=== PATIENT | female | born 1990 | race Caucasian/White ===

== ENCOUNTER 2016-12-13 22:42 | Emergency (ER) | payer MEDICAID ==
[~2016-12-13] VITALS: Ht 167.6 cm; Wt 99.8 kg
[2016-12-13 23:14] LABS: URINE BILIRUBIN - DIPSTICK NEGATIVE (NEG); URINE BLOOD NEGATIVE (NEG)
[2016-12-13 23:19] LABS: URINE SQUAMOUS CELLS TNTC #/hpf (0-5)
[2016-12-13 23:25] LABS: HEMOGLOBIN 13.1 g/dL (12.2-16.2); LYMPH # 2.3 K/mm3 (0.7-4.5); LYMPH % 21.6 % (10-50.0)
--- NOTE | 2016-12-14 00:08 | Emergency Room Report ---
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 N/V. H/O GALLBLADDER. 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 N Clinical Suspician of Infection? N Mental Status: 1 - Regular (Normal Baseline) Sepsis Risk:Low Sepsis Risk Have you (or family members/close friends) recently traveled outside the [place]? N If Yes, where/when: Have you had exposure to infectious disease within the past month? N TB? Other? Specify: Source patient, RN notes reviewed, RN/MD Exam Limitations no limitations Comment This is a 26-year-old female patient brought in by EMS with RIGHT upper quadrant abdominal pain, after eating a pizza around 9 PM. Patient was nauseated, vomited once. Denies any previous similar episodes in the past. ALLERGIES Coded Allergies: penicillin G (Mild, I-RASH 12/13/16) Pertussis Vaccines (12/13/16) History Medical History General CAD? No Angina: No UT: No Hypertension? No Hyperlipidemia? No CHF? No DVT? No PE? No COPD? No Asthma? No Anemia? No GERD? Yes Gastric ulcers? Yes GI Bleed? No Hernia? Yes Thyroid Problems? No Hypothyroidism? No CVA? Yes Seizures? No Diabetes? No Renal Insuffiency? No End Stage Renal Disease? No UTI? No Stones? No BPH? No GB Disease: Yes Nephritic Syndrome? No Asplenia? No Hepatitis? No Sickle Cell Disease? No Arthritis? No Migraines? Yes Cataracts? No Glaucoma? No MRSA? No HIV? No TB? No Anxiety? Yes Depression? Yes Cancer? 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 No: respiratory distress. Lung Sounds bilateral: normal breath sounds, lungs clear. Cardiovascular normal exam, regular rate/rhythm, no peripheral edema, no gallop, no JVD, no murmur, no rub, normal peripheral pulses Gastrointestinal normal bowel sounds, soft, no organomegaly, tenderness (RUQ) Extremities non-tender, normal range of motion, normal inspection Neurologic alert, normal exam, oriented x 3 Mental status normal mood/affect Skin intact, normal color, warm/dry Medical Decision Making LABS/Meds/Orders Pt receiving controlled substance in ED? No Comment 23:45-patient reevaluated, she appears in no acute distress, medically stable. Advised patient to follow up with PCP in order to obtain a fasting gallbladder ultrasound in the next few days. Patient instructed to abstain from any fatty meals till workup completed. Ddx: Cholelithiasis, cholecystitis, acute pancreatitis, gastritis, gastroesophageal reflux disease, hiatal hernia, bowel obstruction, etc. Results/Orders Laboratory Tests 12/13/16 2315: Sodium 142, Potassium 4.0, Chloride 103, Carbon Dioxide 30, BUN 13, Creatinine 1.0, Estimated Creat Clear 133, Estimated GFR (MDRD) 67, Glucose 101, Calcium 9.2, Total Bilirubin 0.3, AST 34, ALT 32, Alkaline Phosphatase 127 H, Total Protein 9.0 H, Albumin 4.3, Globulin 4.7 H, Albumin/Globulin Ratio 0.9 L, Amylase 62, Lipase 154, WBC 10.8, RBC 4.56, Hgb 13.1, Hct 40.2, MCV 88.1, RDW 13.0, Plt Count 285, MPV 8.6, Gran % 71.9, Gran # 7.8, Lymphocytes % 21.6, Monocytes % 4.2, Eosinophils % 2.0, Basophils % 0.3, Lymphocytes # 2.3, Monocytes # 0.5, Eosinophils # 0.2, Basophils # 0.0, PUBS MCHC 32.5, MCH 28.7 12/13/160: Urine Color YELLOW, Urine Appearance SL CLOUDY, Urine pH 6.0, Ur Specific [place] >= 1.030, Urine Protein NEGATIVE, Urine Ketones NEGATIVE, Urine Blood NEGATIVE, Urine Nitrate NEGATIVE, Urine Bilirubin NEGATIVE, Urine Urobilinogen 1.0, Ur Leukocyte Esterase NEGATIVE, Urine WBC 5-10, Ur Squamous Epith Cells TNTC, Amorphous Sediment 1+, Urine Mucus 1+, Urine Glucose NEGATIVE Current Medication Orders Sig/[place] Start time Last Medication Dose Route Stop Time Status Admin Morphine Sulfate 4 MG ONCE ONE 12/14 14 DC 12/14 IV 12/14 0016 0012 Ondansetron HCl 4 MG ONCE ONE 12/14 0015 DC 12/14 IV 12/14 0016 0011 Ondansetron HCl 0 .STK-MED ONE 12/14 001 DC .ROUTE Morphine Sulfate 0 .STK-MED ONE 12/14 0010 DC .ROUTE Ketorolac 30 MG ONCE ONE 12/13 233 DC 12/13 Tromethamine IV 12/13 2331 2325 Ondansetron HCl 4 MG ONCE ONE 12/13 2330 DC 12/13 IV 12/13 2331 2323 Ketorolac 0 .STK-MED ONE 12/13 2322 DC Tromethamine .ROUTE Ondansetron HCl 0 .STK-MED ONE 12/13 2322 DC .ROUTE Sodium Chloride 1,000 ML .STK-MED ONE 12/13 2303 DC IV Sodium Chloride 1,000 ML .Q1H1M 12/13 2300 DC 12/13 IV 12/14 0000 2323 Sodium Chloride 10 ML PRN PRN 12/13 2300 AC IV 12/14 224 Sodium Chloride 10 ML PRN PRN 12/13 2245 AC IV 12/14 2244 Orders Procedure Date/time Status CULTURE, URINE 12/13 2309 Active URINALYSIS/COMPLETE 12/13 2244 Complete IV SALINE LOCK 12/14 2243 Active URINE 12/14 2243 Complete LIPASE 12/14 2243 Complete CBC WITH AUTO DIFF 12/14 2243 Complete CHEM 12 PROFILE 12/14 2243 Complete AMYLASE 12/14 2243 Complete Departure Departure Time of Disposition 0003 Disposition DC Home or Self Care(routine) Clinical Impression Primary Impression: RUQ abdominal pain Condition STABLE Referrals Sasha GUDINO,Yosi Zapata Patient Instructions DI for Abdominal Pain-Adult Additional Instructions Please see your PCP within 2-3 days in order to arrange for a glallbladder ultrasound (fasting). Discharge Counseling Counseled pt/family regarding diagnosis, test results, medications/RX, home care, follow up needs Comment Please see your PCP within 2-3 days in order to arrange for a glallbladder ultrasound (fasting). ED Critical Care Critical Care No at [id number]
[2016-12-14 00:25] VITALS: BP 102/68
== END 2016-12-14 00:25 | disposition home or self-care (01) ==
LOC: ER 22:42
PROVIDERS: Emergency Medicine
DX: R10.11 Right upper quadrant pain (principal)
CPT/HCPCS: J2405

== ENCOUNTER 2016-12-19 06:34 | Emergency (ER) | payer MEDICAID ==
[~2016-12-19] VITALS: Ht 167.6 cm; Wt 99.8 kg
[2016-12-19] MEDS ORDERED: PRILOSEC20 M1 PO (06:44)
[2016-12-19] MEDS ORDERED: KLONOPIN 0.5MG0.5 MG NG (06:45)
[2016-12-19 07:12] LABS: URINE BILIRUBIN - DIPSTICK NEGATIVE (NEG); URINE BLOOD NEGATIVE (NEG)
[2016-12-19 07:17] LABS: HEMOGLOBIN 14.1 g/dL (12.2-16.2); LYMPH # 1.8 K/mm3 (0.7-4.5); LYMPH % 17.3 % (10-50.0)
--- NOTE | 2016-12-19 08:04 | Emergency Room Report ---
History of Present Illness Time Seen by [id number] Presenting Problem in Triage Pt arrived:Walked Presenting Problem:AWAKENED AT 0300 WITH SOB AND SHARP PAIN RUQ AND BACK. WAS SEEN HERE IN ER ON Wednesday12/14/16. 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 N Clinical Suspician of Infection? N Mental Status: 1 - Regular (Normal Baseline) Sepsis Risk:Possible Sepsis Risk Have you (or family members/close friends) recently traveled outside the [place]? N If Yes, where/when: Have you had exposure to infectious disease within the past month? N TB? Other? Specify: Patient seen in ED 12/13/16, referred to PCP of choice for f/u gb US. She states she has just moved here from [place] and is working on [employer] insurance so she may ultimately go to Dr. Hernandez. Meanwhile, she continues to have intense nausea and sharp RUQ pain in conjunction with eating fatty food such as pizza. The pain has been intermittent until yesterday, when it became more intense and unremitting. She has no appetite due to the nausea and pain. She is not vomiting or stooling blood. No fever. LMP two months ago. A little urinary frequency reported, w/o hematuria. ALLERGIES Coded Allergies: penicillin G (Mild, I-RASH 12/13/16) Pertussis Vaccines (12/13/16) Home Medications Reported Medications OMEPRAZOLE MAGNESIUM (Prilosec 20MG) 20 MG PO BID Clonazepam (Klonopin 0.5MG) 0.5 MG NG PRN PRN ANXIETY History Medical History General CAD? No Angina: No [place]: No Hypertension? No Hyperlipidemia? No CHF? No DVT? No PE? No COPD? No Asthma? No Anemia? No GERD? Yes Gastric ulcers? Yes GI Bleed? No Hernia? Yes Thyroid Problems? No Hypothyroidism? No CVA? Yes Seizures? No Diabetes? No Renal Insuffiency? No End Stage Renal Disease? No UTI? No Stones? No BPH? No GB Disease: Yes Nephritic Syndrome? No Asplenia? No Hepatitis? No Sickle Cell Disease? No Arthritis? No Migraines? Yes Cataracts? No Glaucoma? No MRSA? No HIV? No TB? No Anxiety? Yes Depression? Yes Cancer? 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 Physical Exam Vital Signs Vital Signs Date Time Temp Pulse Resp B/P Pulse O2 O2 Flow FiO2 Ox Delivery Rate 12/19 0942 93 14 109/72 100 12/19 0824 16 12/19 0806 97 20 132/91 100 12/19 0637 98.1 113 24 142/83 98 General Appearance normal appearance (tearful), WD/WN, mild distress Eye Exam - bilateral eye normal exam, bilateral eye PERRL, bilateral eye EOMI ( nonicteric) Neck normal inspection, non-tender, supple Respiratory Status Yes: trachea midline, chest symmetrical, non tender chest. No: respiratory distress, tender on palpation, use of accessory muscles, pain on inspiration, pain on expiration, productive cough, non productive cough. Lung Sounds bilateral: normal breath sounds, lungs clear. Cardiovascular normal exam, regular rate/rhythm, no peripheral edema, no gallop, no JVD, no murmur, no rub, normal peripheral pulses Gastrointestinal normal bowel sounds, soft, no organomegaly, no pulsatile mass, no guarding, tenderness (pos Alvarado's sign) Back no CVA tenderness, bowel/bladder continent, gait normal Extremities normal range of motion Strength 5 Upper Ext (L), 5 Upper Ext (R), 5 Lower Ext (L), 5 Lower Ext (R) Neurologic alert, normal exam, no motor/sensory deficits, oriented x 3 Glascow Coma Scale Glascow Coma Scale Response Value EYE response: 4 Spontaneously 4 MOTOR response: 6 OBEYS 6 VERBAL response: 5 Oriented & Converses 5 Total 15 Skin intact, normal color, warm/dry Medical Decision Making LABS/Meds/Orders Pt receiving controlled substance in ED? No Results/Orders Laboratory Tests 12/19/16 0755: Lipase 142 12/19/16 0755: Sodium 140, Potassium 4.5, Chloride 105, Carbon Dioxide 23, BUN 18, Creatinine 1.0, Estimated Creat Clear 133, Estimated GFR (MDRD) 67, Glucose 106, Calcium 8.9, Total Bilirubin 0.5, AST 227 H, ALT 145 H, Alkaline Phosphatase 127 H, Total Protein 7.5, Albumin 3.7, Globulin 3.8 H, Albumin/Globulin Ratio 1.0 L 12/19/16 0705: WBC 10.6, RBC 4.86, Hgb 14.1, Hct 42.2, MCV 86.9, RDW 12.8, Plt Count 294, MPV 8.4, Gran % 75.9, Gran # 8.0 H, Lymphocytes % 17.3, Monocytes % 5.0, Eosinophils % 1.3, Basophils % 0.4, Lymphocytes # 1.8, Monocytes # 0.5, Eosinophils # 0.1, Basophils # 0.0, PUBS MCHC 33.5, MCH 29.1, Urine Color YELLOW , Urine Appearance SL CLOUDY, Urine pH 6.5, Ur Specific [place] 1.020, Urine Protein NEGATIVE, Urine Ketones NEGATIVE, Urine Blood NEGATIVE, Urine Nitrate NEGATIVE, Urine Bilirubin NEGATIVE, Urine Urobilinogen 1.0, Ur Leukocyte Esterase 1+ H, Urine WBC 5-10, Ur Squamous Epith Cells 5-10, Urine Bacteria 2+, Urine Mucus 2+, Urine Glucose NEGATIVE Current Medication Orders Sig/Florence Start time Last Medication Dose Route Stop Time Status Admin Ketorolac 30 MG ONCE ONE 12/19 829 DC 12/19 Tromethamine IV 12/19 830 0824 Ondansetron HCl 4 MG ONCE ONE 12/19 829 DC 12/19 IV 12/20 0731 0824 Ketorolac 0 .STK-MED ONE 12/19 820 DC Tromethamine .ROUTE Ondansetron HCl 0 .STK-MED ONE 12/19 820 DC .ROUTE Sodium Chloride 1,000 ML .STK-MED ONE 12/19 702 DC IV Ondansetron HCl 0 .STK-MED ONE 12/19 07 DC .ROUTE Ondansetron HCl 4 MG ONCE ONE 12/19 07 DC 12/19 IV 12/19 0701 0704 Sodium Chloride 10 ML PRN PRN 12/19 07 AC IV 12/20 0646 Sodium Chloride 1,000 ML .Q1H1M 12/19 0700 DC 12/19 IV 12/19 08 0704 Sodium Chloride 10 ML PRN PRN 12/19 07 AC IV 12/20 0659 Orders Procedure Date/time Status DIET-NOTHING BY MOUTH 12/19 B Active US RUQ-(ABD LTD)1ORGAN/QUAD/FU 12/19 0818 Active LIPASE 12/19 08 Complete CULTURE, URINE 12/[address] ABD/PELVIS REQ 12/19 07 Complete IV SALINE LOCK 12/19 06 Active URINALYSIS/COMPLETE 12/19 06 Complete URINE 12/19 645 Complete CBC WITH AUTO DIFF 12/19 645 Complete CHEM 12 PROFILE 12/19 06 Complete XRAY/CT/US XRAY/CT/US CT abdomen, pelvis CT interpretation by reviewed by me, discussed w/radiologist Time results known: 814 CT Results normal/NAD (distended gb rec US ) Ultrasound gallbladder US Interpretation by reviewed by me (d/w tech) US results gall bladder stones (nl CBD no stranding mult calc) Progress ED Progress Notes Date 12/19/16 Time 0950 Comment Feeling much better, ready for d/c; referred to surgery out patient Departure Departure Time of Disposition 0950 Disposition DC Home or Self Care(routine) Clinical Impression Primary Impression: Gallstones Condition STABLE Referrals Amna GUDINO,Dheeraj RUBY MD,KRYSTAL Prince Patient Instructions Gallstones (Alternative Therapy) Additional Instructions Naproxen, low fat diet, call for surgery appointment regarding gallstones and need for surgical removal of gall bladder. Discharge Counseling Counseled pt/family regarding diagnosis, test results, medications/RX, home care, follow up needs Prescriptions Current Visit Scripts NAPROXEN (NAPROXEN 500MG TAB) 500 MG PO BIDP PRN pain #20 TAB ED Critical Care Critical Care No at [id number]
--- NOTE | 2016-12-19 08:16 | RADIOLOGY REPORT PS360 ---
CT ABD PELVIS W/O CONTRAST COMPARISON: None HISTORY: Right upper quadrant pain, nausea and vomiting TECHNIQUE: Multiple axial scans obtained from the hemidiaphragms the pelvic floor and were performed without IV or oral contrast. Sagittal and coronal reformats were evaluated as well. FINDINGS: The lower lung curiel are clear. The liver spleen and pancreas appear normal. The stomach is distended with ingested food particles but otherwise appears normal. The gallbladder somewhat hydropic without significant contraction and in view of the. Certainly some degree of biliary dyskinesia must be considered. There may be a small amount biliary sludge within the gallbladder and suggest consideration of a follow-up ultrasound right upper quadrant for additional evaluation. The adrenal glands are normal. The kidneys are normal size and there are no calculi and is no obstructive uropathy. Small bowel is normal. The appendix is normal caliber and partially air-filled. There is minimal scattered stool in ascending and transverse colon. The small umbilical hernia containing fat only. The uterus is normal size and in the midline. Urinary bladder is partially decompressed, is no free fluid in the pelvis. IMPRESSION: Somewhat hydropic gallbladder with stomach distended with food and suspect biliary dyskinesia and suggest clinical correlation and possibly follow-up ultrasound right upper quadrant and probably HIDA scan as well.
[2016-12-19] MEDS ORDERED: NAPROXEN SODIU500 MG PO (09:51)
[2016-12-19 09:57] VITALS: BP 109/72
--- NOTE | 2016-12-19 09:57 | RADIOLOGY REPORT PS360 ---
US RUQ-(ABD LTD)1ORGAN/QUAD/FU COMPARISON: CT scan abdomen pelvis same date HISTORY: Right upper quadrant pain TECHNIQUE: Ultrasound right upper quadrant FINDINGS: The pancreas appears normal. The liver is normal size and liver parenchyma appears normal. The gallbladder somewhat hydropic and there are multiple calcified and partially calcified gallstones layering with on the dependent wall. There is a small amount biliary sludge as well. The common bile is normal caliber. Right kidney measures 10.6 x 4.1 x 5.3 cm and shows a good cortical medullary junction with no abnormality. IMPRESSION: Obvious cholelithiasis and suspected tiny amount biliary sludge as well
[2017-01-05] MEDS ORDERED: KEFLEX 500MG.500 MG PO (20:30)
== END 2016-12-19 09:58 | disposition home or self-care (01) ==
LOC: ER 06:34
PROVIDERS: Emergency Medicine
DX: K80.80 Other cholelithiasis without obstruction (principal); Z87.891 Personal history of nicotine dependence
CPT/HCPCS: J2405

== ENCOUNTER → 2016-12-30 | Day surgery (SDC) | payer MEDICAID ==
[~2016-12-30] VITALS: Ht 167.6 cm; Wt 99.8 kg
[~2016-12-30] MED LIST: KLONOPIN 0.5MG0.5 MG NG; NAPROXEN SODIU500 MG PO; PRILOSEC20 M1 PO
--- NOTE | 2016-12-30 11:44 | Operative Note ---
Surgeon/Diagnoses Surgeon/Team Automobile Assembler(s) Date of procedure: 12/30/16 Surgeon: Dheeraj Woo Team Automobile Assembler(s): Nydia Phoenix Diagnoses Pre-op diagnosis: Symptomatic gallstones, chronic cholecystitis Post-op diagnosis Same Procedure Procedure Procedure: Laparoscopic cholecystectomy Indications: CELSO CRAMER is a 26 year-old Female with a history of pain. She is a 26-year- old white female referred from the emergency department for gallbladder disease. For about 4 or 5 months she has had symptoms consistent with biliary colic. However, the past couple weeks her symptoms have been more severe. She describes pain in the epigastrium and RIGHT upper quadrant with radiation into the chest and back with associated nausea. This is intermittent but often occurs postprandially. On 12/14/16 after she had eaten pizza she had a significant attack and called EMS and was transported to the emergency department where she was evaluated by Dr. Rubens Perez. Blood work was unremarkable. At that point no imaging was done and plan was made for her to follow-up as an outpatient for possible gallbladder imaging. However the patient presented back to the emergency department on 12/19/16 and at that point had some slightly increased transaminases. She underwent CT scan as well as gallbladder ultrasound. This revealed obvious gallstones with normal common bile duct and possibly hydropic gallbladder. Findings: Distended gallbladder with small stones and thickening of the gallbladder with some adhesions Procedure Description: Consent was obtained and patient was taken to the operating room. She was given preoperative intravenous antibiotics. She was positioned in a supine position and general anesthesia was induced. Abdomen was prepped and draped in the standard surgical fashion. Subumbilical skin incision was made and while performing abdominal wall lifted the Veress needle was inserted. CO2 pneumoperitoneum was achieved to 15 mmHg. 10/11 mm optical trocar was inserted at the umbilicus. Intracranial contents were visualized. She was positioned in reverse Trendelenburg with LEFT side down. A couple of 5 mm trochars were inserted in the RIGHT upper abdomen. 10 mm trocar was entered in the epigastrium. Gallbladder was easily identified and was somewhat distended. It was grasped retracted anteriorly and superiorly over the dome of the liver. There were some omental adhesions to the gallbladder which were taken down using blunt dissection. Infundibulum/Heather's pouch of the gallbladder was retracted anterolaterally. Dissection was carried out dissecting free and identifying the cystic duct and cystic artery in the critical view of safety. Gallbladder somewhat tapered to the cystic duct and it appeared as though there were a couple of stones within the cystic duct which were easily manipulated into the gallbladder body. Cystic duct was then multiply clipped and then divided. Cystic artery was carefully coagulated with Buck ultrasonic harmonic lurdes and divided. Gallbladder was dissected free from the liver in a retrograde fashion using Buck ultrasonic harmonic lurdes. Gallbladder was placed within an Endo Catch retrieval device and removed from the peritoneal cavity via the umbilical trocar site. Gallbladder fossa was inspected for hemostasis which was assured. Limited interrogation was performed. There is good hemostasis. Trochars are removed as CO2 pneumoperitoneum was evacuated. Fascia at the umbilicus was closed with 0 Vicryl suture. Local anesthetic was infiltrated. Skin incisions were closed with 4-0 Monocryl in a subcuticular fashion. Steri-Strips and clean dry sterile dressings were applied. EBL (ml): 30 Anesthesia: GETA Specimens: Gallbladder and contents Disposition Disposition: To PACU at 1145
--- NOTE | 2016-12-30 11:50 | Anesthesia Record ---
Anesthesia Record Part I Total IV fluids: 700 EBL (ml): 25 Urine Output: 30 B/P: 100/70 % SaO2: 96 Pulse: 80 Resps: 16 Temp: 97.3 Patient is: Drowsy, Stable Stable to PACU at: 1147 at 1150
--- NOTE | 2016-12-30 11:50 | Anesthesia Record ---
Anesthesia Record Part I Total IV fluids: 700 EBL (ml): 25 Urine Output: 30 B/P: 100/70 % SaO2: 96 Pulse: 80 Resps: 16 Temp: 97.3 Patient is: Drowsy, Stable Stable to PACU at: 1147 at 1150
--- NOTE | 2016-12-30 11:51 | Anesthesia Record ---
Anesthesia Record Part II Discharge time: 1217 Destination: Same day surgery PACU nurse assessment review? Yes Patient is: Stable Anesthesia complications? No at 1156
[2016-12-30 16:02] VITALS: BP 134/84
== END ==
LOC: SDC 07:57
PROVIDERS: Surgery
PROC: 0FT44ZZ Resection of Gallbladder, Percutaneous Endoscopic Approach (ICD-10-PCS; principal; 2016-12-30 09:15)
DX: K80.10 Calculus of gallbladder with chronic cholecystitis without obstruction (principal)
CPT/HCPCS: J0131; J2405; J2710

== ENCOUNTER 2017-01-05 18:32 | Emergency (ER) | payer MEDICAID ==
[~2017-01-05] VITALS: Ht 167.6 cm; Wt 99.8 kg
--- NOTE | 2017-01-05 20:31 | Emergency Room Report ---
History of Present Illness Time Seen by 2004 Presenting Problem in Triage Pt arrived:Walked Presenting Problem:1 WEEK POST OP FROM GALLBLADDER REMOVAL , PT UMBILICAL INCISION IS HAVING SOME DRAINAGE , PT STATES HE HAS DRAINED THE ENTIRE TIME . 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 N Clinical Suspician of Infection? Y Mental Status: 1 - Regular (Normal Baseline) Sepsis Risk:Possible Sepsis Risk Have you (or family members/close friends) recently traveled outside the [place]? N If Yes, where/when: Have you had exposure to infectious disease within the past month? N TB? Other? Specify: Source patient, RN notes reviewed, family, old records Exam Limitations no limitations Comment concern about ozzing from umbilical area of recent gb - pt with no fever or odor and no inc abd pain Cardiac Chest Pain Chest pain indicative of cardiac No Timing/Duration this evening Severity moderate ALLERGIES Coded Allergies: penicillin G (Mild, I-RASH 12/30/16) Pertussis Vaccines (12/30/16) Home Medications Active Scripts NAPROXEN (NAPROXEN 500MG TAB) 500 MG PO BIDP PRN pain #20 TAB Prov: 12/19/16 Reported Medications OMEPRAZOLE MAGNESIUM (Prilosec 20MG) 20 MG PO BID Clonazepam (Klonopin 0.5MG) 0.5 MG NG PRN PRN ANXIETY History Medical History General CAD? No Angina: No HI: No Hypertension? No Hyperlipidemia? No CHF? No DVT? No PE? No COPD? No Asthma? No Anemia? No GERD? Yes Gastric ulcers? Yes GI Bleed? No Hernia? No Thyroid Problems? No Hypothyroidism? No CVA? No Seizures? No Diabetes? No Renal Insuffiency? No End Stage Renal Disease? No UTI? Yes Stones? No BPH? No GB Disease: No Nephritic Syndrome? No Asplenia? No Hepatitis? No Sickle Cell Disease? No Arthritis? No Migraines? Yes Cataracts? No Glaucoma? No MRSA? No HIV? No TB? No Anxiety? Yes Depression? Yes Cancer? No More? 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 Respiratory denies cough, denies shortness of breath, denies wheezing Cardiovascular denies chest pain, denies syncope Gastrointestinal denies abdominal pain, denies diarrhea, denies vomiting Genitourinary denies: dysuria, frequency, hesitancy, hematuria. Musculoskeletal denies back pain, denies joint pain, denies neck pain Skin see HPI, denies rash, other Psychiatric/Neurological denies headache, denies seizure Physical Exam Vital Signs Vital Signs Date Time Temp Pulse Resp B/P Pulse O2 O2 Flow FiO2 Ox Delivery Rate 01/05 2019 99.8 96 20 128/77 99 01/05 191 99.0 105 20 138/76 98 01/05 1838 98.4 111 20 124/78 99 - WBC >12,000 or <4,000 or 10% bands? 2 or more SIRS Criteria Met? B/P:128/77 MAP:93 Creatinine >2.0? UA output<0.5ml/kg/hr for 2 hrs? Platelet count >100,000? Lactate >2.0mmol/1? INR >1.2 or PTT > than 60 sec? Evidence of Organ Dysfunction? Provider documented clinical suspician of infection? Y Sepsis Criteria Count: 2 Sepsis Risk: Possible Sepsis Risk General Appearance no apparent distress Eye Exam - bilateral eye PERRL, bilateral eye EOMI Ear, Nose, Throat normal ENT inspection Neck supple Respiratory Status No: respiratory distress. 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 No Results/Orders Orders Procedure Date/time Status URINALYSIS/COMPLETE 01/05 1938 Active CBC WITH AUTO DIFF 01/05 1938 Active CHEM 12 PROFILE 01/05 1938 Active Departure Departure Time of Disposition 2027 Disposition DC Home or Self Care(routine) Clinical Impression Primary Impression: Fluid collection at surgical site Qualifiers: Encounter type: initial encounter Qualified Code: T88.8XXA - Other specified complications of surgical and medical care, not elsewhere classified, initial encounter Condition STABLE Referrals Myron Hernandez MD (Family) discussed with dr brown Patient Instructions How to Care for a Surgical Wound Additional Instructions call dr brown and recheck if any problems Discharge Counseling Counseled pt/family regarding diagnosis, test results, medications/RX, follow up needs Prescriptions Current Visit Scripts CEPHALEXIN (Keflex 500MG Capsule) 500 MG PO Q8H #21 CAP ED Critical Care Critical Care No at 2031
[2017-01-05 20:46] LABS: URINE BILIRUBIN - DIPSTICK NEGATIVE (NEG); URINE BLOOD NEGATIVE (NEG)
[2017-01-05 20:52] VITALS: BP 114/69
== END 2017-01-05 20:53 | disposition home or self-care (01) ==
LOC: ER 18:32
PROVIDERS: General Practice
DX: T88.8XXA Other specified complications of surgical and medical care, not elsewhere classified, initial encounter (principal); Z88.0 Allergy status to penicillin; Z88.7 Allergy status to serum and vaccine; K21.9 Gastro-esophageal reflux disease without esophagitis